=== PATIENT | female | born 1995 | race African-American/Black ===

== ENCOUNTER 2017-06-22 21:15 | Emergency (ER) | payer OTHER ==
[~2017-06-22] VITALS: Ht 157.5 cm; Wt 81.6 kg
[2017-06-22 21:24] VITALS: TEMP 37.3; Ht 157.5 cm; Wt 81.6 kg
[2017-06-22] MEDS ORDERED: BCPILLS PO (21:38)
[2017-06-22] MEDS ORDERED: SULF800T23 PO (21:38)
[2017-06-22] MEDS ORDERED: AMOX875T PO (21:55)
[2017-06-22] MEDS ORDERED: NORCO 5/325MG HOME PACK PO ONE (22:00)
[2017-06-22] MEDS ORDERED: AMOXICIL/CLAVU 875MG HOME PACK PO ONE (22:00)
[2017-06-22 22:10] VITALS: BP 117/80; PULSE 101; O2SAT 98
--- NOTE | 2017-06-22 22:15 | EMERGENCY ROOM VISIT NOTE ---
History First contact with patient: 21:43 Chief Complaint: INFECTION Stated Complaint: EXTREME PAIN LOWER AREA, CYST Nursing Triage Summary: Seen at Urgent Care on Thursday for Polinidal cyst. Was told if pain worsening and increasing in size to come into ED. Pt reports pain worsening, denies drainage. On abx currently History of Present Illness The patient is a 22 year old female who presents to the Emergency Room with complaints of pain at the top of her buttocks. The patient has a history of pilonidal cyst and feels that she may have the same. She did go to an urgent care clinic 2 days ago where she was started on Bactrim. She states the pain has worsened today. She has previously followed with a surgeon regarding this from [place], but has yet to undergo any sort of surgical intervention. She has not had fever or chills. No history of inflammatory bowel disease. She considers herself otherwise usually healthy. The pain a 7/10 that worsens with certain positions. Review of Systems More than 10 systems were reviewed and otherwise negative with the exception of history of present illness. Past Medical/Surgical History No pertinent chronic medical disease Family History No pertinent family history Social History Smoking Status: Never Smoker Occupation Status: [employer] student Current/Historical Medications Scheduled Amoxicillin & Pot Clavulanate (Augmentin 875-125 mg), 1 TAB PO BID Control Pills ( Control Pills), 1 TAB PO DAILY Sulfa/Trimethoprim (Bactrim Ds 800MG/160MG), 1 TAB PO BID Physical Exam Vital Signs Date Time Temp Pulse Resp B/P (MAP) Pulse Ox O2 Delivery O2 Flow Rate FiO2 06/22/17 21:24 37.3 99 18 137/92 95 Room Air Physical Exam VITALS: Vitals are noted on the nurse's note and reviewed by myself. Vital signs stable. GENERAL: Well-developed, well-nourished, female, who is in no acute distress and resting comfortably. Patient is cooperative with the examination. HEART: Regular rate and rhythm without murmurs gallops or rubs. LUNGS: Clear to auscultation bilaterally without wheezes, rales or rhonchi. No retractions or accessory muscle use. ABDOMEN: Positive normal bowel sounds x 4. Soft, nontender, without masses or organomegaly. No guarding or rebound tenderness. SKIN: The skin was with a very small, subcentimeter, area of palpable tenderness at the superior left gluteal cleft. Anatomically this is essentially in the area of a pilonidal cyst. There is no significant abscess or palpable fluctuance. No drainage appreciated. Medical Decision & Procedures ED Course Physical exam and history were performed. Nursing notes, EMR, and Medication List were personally reviewed. Patient appears to have pain at the superior aspect of her gluteal cleft. She is a history of pilonidal abscess. On examination she is tender in this area, however there is no obvious fluctuance or notable abscess/drainage. I discussed options of care with the patient, including attempt at incision and drainage. Utilizing shared decision making the elected to defer this procedure at this time. This appears reasonable as I am not overly confident that this will provide the patient any relief. I will start her on Augmentin and give her a home pack of Vicodin. The patient is to use warm moist compresses at home. She was asked to monitor for symptoms, as she may need incision and drainage if this increases in size and severity. The patient was pleased with this and voiced understanding. She rated her discomfort a 4/10 at the time of departure. The chart was completed utilizing [employer] Speech Voice Recognition Software. Grammatical errors, random word insertions, pronoun errors, and incomplete sentences are an occasional consequence of this system due to software limitations, ambient noise, and hardware issues. Any formal questions or concerns about the content, text, or information contained within the body of this dictation should be directly addressed to the provider for clarification. . Medical Decision Differential diagnosis: Etiologies such as cellulitis, abscess, MRSA infection, DVT, necrotizing fasciitis, dermatitis, drug eruption, as well as others were entertained.. Blood Pressure Screening Patient's blood pressure: Normal blood pressure Impression Primary Impression: Infected pilonidal cyst Departure Information Dispostion Home / Self-Care Condition GOOD Prescriptions Amoxicillin & Pot Clavulanate (Augmentin 875-125 mg) 1 Tab Tab 1 TAB PO BID for 9 Days, #18 TAB Prov: Tyshawn Javier PA-C 06/22/17 Referrals [facility] (PCP) Forms HOME CARE DOCUMENTATION FORM, IMPORTANT VISIT INFORMATION Patient Instructions My [facility] Additional Instructions You were seen and evaluated today on an emergency basis only. This is not a substitute for, or an effort to provide, complete comprehensive medical care. It is not possible to recognize and treat all injuries or illnesses in a single emergency department visit. For this reason it is recommended that you followup with your primary care physician, [facility], or your surgeon for ongoing care. For baseline pain relief you may alternate ibuprofen and acetaminophen every 4 hours for pain control. Take 600 mg ibuprofen (Advil) and then 4 hours later take 1000 mg acetaminophen (Tylenol). Do not take more than 3000 mg acetaminophen in a single day. Amoxicillin Clavulanate (Augmentin) 875mg: Take one pill twice daily for 10 days for your infection. All antibiotics can cause diarrhea. If this occurs and you feel worse or it does not resolve in 1-2 days follow up with your doctor or return to the Emergency Department as this could be signs of serious underlying problems. Any medication can cause an allergic reaction, stop the pills immediately and return to the ER for rash, hives, breathing difficulties, or swelling. [place] (hydrocodone/acetaminophen) 5/325 mg (homepack) ONE by mouth every 6 hours as needed for worsening breakthrough pain. Do not drink or drive on [place]. This medication will likely make you tired. Do not take [place] and Tylenol at the same time as both contain acetaminophen. [place] may cause constipation. You may wish to take an [id number] stool softener like Colace if this occurs. Apply warm moist heat 20 minutes on and 20 minutes off as much as tolerated. You are welcome to return to the emergency department anytime with new, worsening, or concerning symptoms.
== END 2017-06-22 22:10 | disposition home or self-care (01) ==
LOC: C.EDB 21:18 → C.EDD 22:10
DX: L05.91 Pilonidal cyst without abscess (principal); Z79.3 Long term (current) use of hormonal contraceptives